=== PATIENT | female | born 1985 | race Caucasian/White ===

== ENCOUNTER 2021-01-29 22:56 | Emergency (ER) | payer MEDICAID ==
[~2021-01-29] VITALS: Ht 175.3 cm; Wt 61.2 kg
--- NOTE | 2021-01-29 23:31 | NUR ---
PT AAOX4. AMBULATORY WITH STEADY GAIT. BIBSELF C/O ABDOMINAL PAIN X2 WEEKS +BLOATED, +FEVER X1 MONTH. PLACED IN BED 7 ON MONITOR AND PULSE OX. IV LINE INITIATED RAC 20G, BLOOD WORK COLLECTED, SENT TO LAB.
[2021-01-29] MEDS ORDERED: ONDANSETRON HCL/PF 4 MG/2 ML VIAL ONE (23:42)
[2021-01-29 23:47] LABS: BILIRUBIN,URINE Negative (NEGATIVE); COLOR,URINE YELLOW (YELLOW); LEUKOCYTE ESTERASE ,URINE Negative (NEGATIVE); NITRITE, URINE Negative (NEGATIVE); PROTEIN,URINE Negative (NEGATIVE); UGLUCOSE Negative (NEGATIVE); UROBILINOGEN,URINE 0.2 EU/dL (0.2)
[2021-01-29] MEDS: IV NS 0.9% 1,000 ML BAG IV ONE (23:50)
[2021-01-29] MEDS: ONDANSETRON HCL/PF 4 MG/2 ML VIAL IVP ONE (23:51)
[2021-01-29 23:54] LABS: BASOPHILS % (AUTO) 0.3 % (0.0-2.0); EOSINOPHILS % (AUTO) 2.7 % (0.0-6.0); HEMATOCRIT 39 % (33-45); HEMOGLOBIN 12.8 g/dL (11.5-14.8); LYMPHOCYTES # (AUTO) 2.8 K/uL (0.8-4.8); LYMPHOCYTES % (AUTO) 36.3 % (20.0-44.0); MEAN CORPUSCULAR HGB CONC 33 g/dl (31.0-36.0); MEAN CORPUSCULAR VOLUME 85 fL (82-100); MONOCYTES # (AUTO) 0.7 K/uL (0.1-1.30); MONOCYTES % (AUTO) 9.4 % (2.0-12.0); NEUTROPHILS % (AUTO) 51.3 % (43.0-81.0); PLATELET COUNT (AUTO) 283 K/uL (150-450); RED BLOOD CELL COUNT(AUTO) 4.52 MIL/uL (4.0-5.2); WHITE BLOOD COUNT (AUTO) 7.8 K/uL (4.3-11.0)
[2021-01-30 00:19] LABS: CALCIUM, SERUM 8.2 mg/dL (8.5-10.1); CREATININE 0.8 mg/dL (0.6-1.3); POTASSIUM 3.8 mmol/L (3.5-5.1)
[2021-01-30 00:30] LABS: ALBUMIN 3.6 g/dL (3.4-5.0); BILIRUBIN,DIRECT 0.2 mg/dL (0.0-0.2); BILIRUBIN,TOTAL 0.9 mg/dL (0.2-1.0)
[2021-01-30] MEDS ORDERED: POLY17PO4 PO (01:21)
[2021-01-30] MEDS ORDERED: DOCU-141 PO (01:21)
--- NOTE | 2021-01-30 01:41 | NUR ---
IV removed. Catheter intact and site benign. Pressure and 4x4 applied to site. No bleeding noted. Patient discharged to home in stable condition. Written and verbal after care instructions given. Patient verbalizes understanding of instruction and RX. Pt ambulated out of ED. VSS.
[2021-01-30 01:43] VITALS: BP 136/87
== END 2021-01-30 01:43 | disposition home or self-care (01) ==
LOC: ER 22:56
DX: K59.00 Constipation, unspecified (principal); R19.7 Diarrhea, unspecified; R10.84 Generalized abdominal pain
CPT/HCPCS: 36415; 74176; 80048; 80076; 81003; 83690; 84703; 85025; 96361; 96374; 99284; J2405; J7030